=== PATIENT | male | born 1990 | race Two or more races ===

== ENCOUNTER 2021-04-17 01:19 | Emergency (ER) | payer OTHER ==
[~2021-04-17] VITALS: Ht 172.7 cm; Wt 99.8 kg
[~2021-04-17 01:19] MED LIST: GUAI600T23
[2021-04-17 01:33] VITALS: BP 113/56
[2021-04-17] MEDS ORDERED: BACITRACIN TOP OINT 1 UD PKG TOP ONE (03:15)
== END 2021-04-17 03:21 ==
LOC: ER 01:19
DX: S40.811A Abrasion of right upper arm, initial encounter (principal); F17.210 Nicotine dependence, cigarettes, uncomplicated; Z79.899 Other long term (current) drug therapy; V49.49XA Driver injured in collision with other motor vehicles in traffic accident, initial encounter; Y93.89 Activity, other specified; Y92.488 Other paved roadways as the place of occurrence of the external cause; Y99.8 Other external cause status
CPT/HCPCS: 73060